=== PATIENT | male | born 1985 | race Caucasian/White ===

== ENCOUNTER → 2024-09-29 | Outpatient (CLI) | payer BC, SELFPAY ==
--- NOTE | 2024-09-29 16:35 | US_ITS ---
PROCEDURE: TESTICULAR WITH ARTERIAL FLOW 09/29/2024 REASON FOR EXAM: TESTICULAR LUMP TECHNIQUE: TESTICULAR WITH ARTERIAL FLOW COMPARISON: None FINDINGS: RIGHT testicle: 5.6 x 2.4 x 3.1 cm for volume of 21.5 mL Homogeneous echotexture. No intratesticular mass. Trace hydrocele. No significant varicocele. Right epididymis: There are a few epididymal head cysts or spermatoceles measuring up to 7 mm in size. LEFT testicle: 5.3 x 2.3 x 3.6 cm for volume of 22.6 mL Homogeneous echotexture. No intratesticular mass. Trace hydrocele. No significant varicocele. Left epididymis: Tiny epididymal head cyst or spermatocele measuring 3 mm. DOPPLER FINDINGS: Symmetric color doppler blood flow signal at both testes. Normal arterial inflow and venous outflow waveforms at both testes. US/Testicular with Arterial Flow IMPRESSION: 1. No acute abnormality, to include no current evidence of testicular torsion. 2. Cystic lesions in the epididymal heads, measuring up to 7 mm on the right a nd 3 mm on the left, and which may represent epididymal head cysts or spermatoceles. No testicular mass. 3. Trace bilateral hydroceles. Reading Location: [id number]
== END | disposition home or self-care (01) ==
LOC: US 16:30
PROVIDERS: PCP Family Medicine; Referring Provider Family Medicine; Visit Provider Family Medicine
DX: N50.89 Other specified disorders of the male genital organs (principal)
CPT/HCPCS: 76870; 93976